=== PATIENT | female | born 2005 | race Hispanic/Latino ===

== ENCOUNTER 2025-09-21 01:37 | Emergency (ER) | payer OTHER, SELFPAY ==
[2025-09-21 01:46] VITALS: BP 142/86; PULSE 92; RESP 24; TEMP 36.8; O2SAT 98; BMI 37.8
--- NOTE | 2025-09-21 02:09 | ED_ITS ---
HPI - Wound/Laceration General Chief Complaint: Wound/Laceration Stated Complaint: Abdominal Pain Time Seen by Provider: 09/21/25 01:55 Source: patient Mode of arrival: Ambulatory History of Present Illness HPI narrative: 20-year-old female complains of left anterior chest sore, started weeping today, no fevers or chills. Currently not on any oral or topical antibiotics. Minimal pain. Denies nausea or vomiting. Denies diarrhea. Drainage has been present for the last 5 days, worsened a few hours ago. Related Data Previous Rx's ?Medication ?Instructions ?Recorded cephalexin 500 mg capsule 500 mg PO QID 7 days #28 cap s 09/21/25 doxycycline hyclate 100 mg tablet 100 mg PO BID #14 ta bs 09/21/25 Allergies Allergy/AdvReac Type Severity Reaction Status Date / Time No Known Drug Allergies Allergy Verified 09/21/25 01:46 Patient History Social History Smoking Status: Former smoker Smoking Status: Former smoker Exam Narrative Exam Narrative: GENERAL: Well-developed patient, in mild distress. HEAD: Atraumatic. Normocephalic. EYES: Pupils equal round and reactive. Extraocular motions intact. No scleral icterus. No injection or drainage. ENT: Nose without bleeding, purulent drainage. Throat without erythema, tonsillar hypertrophy or exudate. Airway patent. NECK: Trachea midline. Non tender CARDIOVASCULAR: Regular rate and rhythm without murmurs, gallops, or rubs. RESPIRATORY: Clear to auscultation. Breath sounds equal bilaterally. No wheezes, rales, or rhonchi. GASTROINTESTINAL: Abdomen soft nontender, left lower quadrant subcutaneous central irritation with warmth and induration, expressible 1 cc purulent appearing fluid, swab sent for culture. EXTREMITIES: No edema or joint tenderness. BACK: Nontender without deformity or crepitance. No flank tenderness. NEURO: AOx3. Motor functions grossly nonfocal. SKIN: No rash or erythema of visible areas Initial Vital Signs Initial Vital Signs: Vital Signs Temperature 98.3 F 09/21/25 01:46 Pulse Rate 92 H 09/21/25 01:46 Respiratory Rate 24 09/21/25 01:46 Blood Pressure 142/86 H 09/21/25 01:46 Pulse Oximetry 98 09/21/25 01:46 Oxygen Delivery Method Room Air 09/21/25 01:46 Course Orders Ordered: ED Orders 09/21/25 02:45 Wound Culture and Gram Stain Stat Discontinued Medications Cephalexin HCl (Cephalexin 250 Mg Capsule) 500 mg PO NOW ONE Stop: 09/21/25 02:50 Last Admin: 09/21/25 03:02 Dose: 500 mg Documented By: SHERIF Doxycycline Hyclate (Doxycycline Hyclate 100 Mg Tablet) 100 mg PO NOW ONE Stop: 09/21/25 02:50 Last Admin: 09/21/25 03:02 Dose: 100 mg Documented By: SHERIF Vital Signs Vital signs: Vital Signs - 8 hr 09/21/25 01:46 Temperature 98.3 F Pulse Rate 92 H Respiratory Rate 24 Blood Pressure 142/86 H Pulse Oximetry 98 Oxygen Delivery Method Room Air MDM - Wound/Laceration MDM Narrative Medical decision making narrative: 20-year-old female with left lower quadrant abdominal wall skin redness and induration, 1 cc scant fluid collection expressible, wound swabbed and sent for culture. Oral cephalexin and doxycycline antibiotics given, prescription for further antibiotics sent to her pharmacy. Take antibiotics as prescribed, encouraged hydration. Return precautions discussed. Discharged home Discharge Plan Departure Patient Disposition: Home Clinical Impression: Abdominal wall abscess Instructions: DI for Wound Infection, DI for Skin Abscess Activity Restrictions/Additional Instructions: Draining left lower quadrant abdominal skin wound, some drainage onto overlying dressing, about 4 hours ago. Currently not on any oral antibiotics. Skin rash last few days. On exam has induration with some redness 4 cm, central firmness, expressible fluid proximally 1 cc, sent swab for wound culture. Given oral antibiotic 1st doses of cephalexin and doxycycline. Prescription for further course of these antibiotics sent to your requested pharmacy. Take antibiotics as prescribed. Recheck here next couple of days. Consider home expression to get more fluid/pus out if there is some more that can be withdrawn. Recheck earlier if any change worsening symptoms or any concerns prior. Prescriptions: New doxycycline hyclate 100 mg tablet 100 mg PO BID Qty: 14 0RF cephalexin 500 mg capsule 500 mg PO QID 7 Days Qty: 28 0RF Stand Alone Forms: Patient Portal/API
[2025-09-21] MEDS: DOXYCYCLINE HYCLATE 100 MG TABLET PO (03:02)
== END 2025-09-21 03:18 | disposition home or self-care (01) ==
PROVIDERS: Emergency Provider Emergency Medicine
DX: L02.211 Cutaneous abscess of abdominal wall (principal)
CPT/HCPCS: 87070; 87077; 87147; 87186; 87205; 99283